=== PATIENT | male | born 1945 | race Caucasian/White ===

== ENCOUNTER 2017-10-08 11:35 | Emergency (ER) | payer MEDICARE, BC ==
[2017-10-08] MEDS ORDERED: Morphine 4 MG/ML Carpuject ONE ×2 (11:57→13:10)
[2017-10-08] MEDS ORDERED: Ondansetron HCl/PF 4 MG/2 ML Vial ONE (11:57)
[2017-10-08 12:14] LABS: #Basophils 0.1 thou/uL (0.0-0.2); #Eosinphils 0.5 thou/uL (0.0-0.7); #Lymphocytes 2.5 thou/uL (1.20-3.40); #Monocytes 0.5 thou/uL (0.11-0.59); #Neutrophils 3.4 thou/uL (1.40-6.50); %Basophils 1.2 % (0.0-1.0); %Eosinophils 7.3 % (0.0-10.0); %Lymphocytes 36.4 % (21.0-51.0); %Monocytes 6.7 % (0.0-10.0); %Neutrophils 48.4 % (42.0-75.0); Hemoglobin 15.6 g/dL (14.0-18.0); Mean Corpuscular HGB CONC 35.3 g/dL (32.0-36.0); Mean Corpuscular Hemoglobin 34.3 pg (27.0-31.0); Mean Corpuscular Volume 97.2 fl (80.0-94.0); Mean Platelet Volume 7.7 fL (7.4-10.4); Platelet Count 196 thou/uL (130-400); RBC Distribution Width 11.2 % (11.5-14.5); Red Blood Cell (RBC) Count 4.56 mill/uL (4.70-6.10)
[2017-10-08 12:37] LABS: ALT (SGPT) 25 U/L (8-55); AST (SGOT) 23 U/L (5-34); Albumin 4.5 g/dL (3.4-4.8); Alkaline Phosphatase 70 U/L (40-150); Anion Gap 15 mmol/L (10-20); BUN (Urea Nitrogen) 18 mg/dL (8.4-25.7); Bilirubin, Total 0.7 mg/dL (0.2-1.2); Calc. Creatinine Clearance 0 mL/min (70-130); Calcium 9.9 mg/dL (7.8-10.44); Carbon Dioxide 21 mmol/L (23-31); Chloride 104 mmol/L (98-107); Estimated GFR-MDRD 72; Globulin 2.9 g/dL (2.4-3.5); Glucose 110 mg/dL (83-110); Lipase 168 U/L (8-78); Potassium 4.4 mmol/L (3.5-5.1); Protein, Total 7.4 g/dL (5.8-8.1); Sodium 136 mmol/L (136-145)
--- NOTE | 2017-10-08 13:03 | RAD ---
ABDOMEN 1 VIEW: HISTORY: Pain. COMPARISON: Abdomen radiograph from 2015. FINDINGS: Multiple calculi projecting over the expected location of the inferior pole right kidney. Also large calculus projecting over what may be the right ureter. No calculus is seen projecting over the left renal collecting system. There are phleboliths in the pelvis. IMPRESSION: Right renal calculi suggestion possible ureteral calculi. Renal stone CT may be beneficial in this p atient. The more caudad calcification could be within a cross-fused ectopic renal collecting system. POS: [facility]
[2017-10-08 13:36] LABS: Bilirubin Negative (Negative); Blood, Urine Negative (Negative); Clarity CLEAR (Clear); Glucose, Urine (Dipstick) >=1000 mg/dL (Negative); Leukocyte Negative (Negative); Nitrite Positive (Negative); Protein, Urine (Dipstick) Negative (Neg-Trace); Specific Gravity, Urine 1.029 (1.002-1.036); Urobilinogen 0.2 mg/dL (0.2-1.0)
[2017-10-08 13:38] LABS: Bacteria/HPF 2+ HPF (None Seen); Hyaline Casts/LPF 0-3 HYALINE CAST LPF (0-3 Hyaline); Squamous Epithelial None Seen HPF (0-3)
[2017-10-08 13:49] LABS: RBC/HPF 0-3 HPF (0-3)
[2017-10-08] MEDS ORDERED: cefTRIAXone\\ROCEPHIN 2 GM in Sodium Chloride 0.9% 100 ML IVPB SCH (15:30)
--- NOTE | 2017-10-08 16:06 | CT ---
EXAM: ABDOMEN CT WITHOUT CONTRAST PELVIC CT WITHOUT CONTRAST: COMPARISON: 02/18/15. HISTORY: Abdominal pain. Right flank pain. History of renal calculi. Previous lithotripsy. TECHNIQUE: Abdomen and pelvic CT is performed without IV or oral contrast. Coronal reformatted images are submi tted for interpretation. FINDINGS: ABDOMEN CT: Chronic changes in the lung bases. There are coronary artery calcifications. Heart size is normal. No significant pericardial fluid. The descending thoracic aorta and abdominal aorta demonstrate mil d atherosclerotic disease. No aneurysm or periaortic fat stranding. Symmetric attenuation of the ps oas muscles. Gallbladder is surgically absent. Limited evaluation of the solid organs due to the absence of IV contrast. Grossly, no solid organ ab normality. No mesenteric mass, lymphadenopathy, free air, or free fluid. Limited evaluation of the alimentary canal by the absence of oral contrast. Multiple normal-caliber small bowel loops. Ileocecal junction is normal. Normal-caliber appendix. Scattered fecal material in a nondistended, nondilated colon. CT evidence of diverticulosis, without evidence of diverticuli tis. 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 There are bilateral nonobstructing in trarenal calculi. The largest calcification in the right renal pelvis measures 0.7 x 1.3 cm. There is a conglomeration of 2 separate calcifications in the left renal pelvis measuring 1.1 x 0.4 cm. Bi laterally, visualized ureters are unremarkable. No hydroureteral, periureteral fat stranding, or ure terolithiasis. PELVIC CT: Decompressed urinary bladder without evidence of bladder calculi. Evaluation is limited. Mucosal pr ominence may be due to inadequate distention. No pelvic mass, lymphadenopathy, free air, or free flu id. IMPRESSION: 1. 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 2. Redemonstration of bilateral nonobstructing urinary calculi. No evidence of obstructive uropathy . POS: [facility]
== END 2017-10-08 17:44 | disposition home or self-care (01) ==
LOC: ERS 11:35
DX: N23 Unspecified renal colic (principal); N39.0 Urinary tract infection, site not specified; I10 Essential (primary) hypertension; E11.9 Type 2 diabetes mellitus without complications; Z79.899 Other long term (current) drug therapy; Z79.84 Long term (current) use of oral hypoglycemic drugs
CPT/HCPCS: 74018; 74176; 80053; 81003; 81015; 83690; 85025; 96361; 96365; 96375; 96376; J0696; J2270; J2405; J7050

== ENCOUNTER 2018-01-14 16:24 | Emergency (ER) | payer MEDICARE, BC ==
[2018-01-14 17:01] LABS: #Eosinphils 0.4 thou/uL (0.0-0.7); #Lymphocytes 2.2 thou/uL (1.20-3.40); #Monocytes 0.5 thou/uL (0.11-0.59); #Neutrophils 4.9 thou/uL (1.40-6.50); %Basophils 0.6 % (0.0-1.0); %Eosinophils 4.6 % (0.0-10.0); %Lymphocytes 27.1 % (21.0-51.0); %Monocytes 5.8 % (0.0-10.0); %Neutrophils 61.9 % (42.0-75.0); Hemoglobin 14.7 g/dL (14.0-18.0); Mean Corpuscular HGB CONC 35.2 g/dL (32.0-36.0); Mean Corpuscular Hemoglobin 33.5 pg (27.0-31.0); Mean Corpuscular Volume 95.3 fl (80.0-94.0); Mean Platelet Volume 7.7 fL (7.4-10.4); Platelet Count 169 thou/uL (130-400); RBC Distribution Width 11.1 % (11.5-14.5); Red Blood Cell (RBC) Count 4.37 mill/uL (4.70-6.10); White Blood Cell (WBC) Count 7.9 thou/uL (4.8-10.8)
[2018-01-14 17:15] LABS: ALT (SGPT) 28 U/L (8-55); AST (SGOT) 23 U/L (5-34); Albumin 4.4 g/dL (3.4-4.8); Alkaline Phosphatase 70 U/L (40-150); Anion Gap 14 mmol/L (10-20); BUN (Urea Nitrogen) 29 mg/dL (8.4-25.7); Bilirubin, Total 0.7 mg/dL (0.2-1.2); Calc. Creatinine Clearance 0 mL/min (70-130); Calcium 9.3 mg/dL (7.8-10.44); Carbon Dioxide 24 mmol/L (23-31); Chloride 102 mmol/L (98-107); Estimated GFR-MDRD 42; Globulin 2.6 g/dL (2.4-3.5); Glucose 142 mg/dL (83-110); Potassium 4.6 mmol/L (3.5-5.1); Sodium 135 mmol/L (136-145)
[2018-01-14 17:22] LABS: CKMB 2.7 ng/mL (0-6.6); Troponin I Less than 0.010 ng/mL (< 0.028)
--- NOTE | 2018-01-14 19:22 | CT ---
HEAD CT WITHOUT CONTRAST 01/14/18 COMPARISON: 05/10/15 HISTORY: Headache, lightheadedness, dizziness, nausea and near syncope. TECHNIQUE: Serial axial CT imaging at 5 mm intervals from vertex through skull base without contrast. FINDINGS: There is partial opacification of the ethmoid air cells bilaterally. There is no displaced calvarial fracture. No intracranial hemorrhage, midline shift, mass effect, or ventricular enlargement. IMPRESSION: No intracranial hemorrhage. POS: [facility]
[2018-01-14 19:35] LABS: Bilirubin Small (Negative); Blood, Urine Large (Negative); Clarity CLEAR (Clear); Glucose, Urine (Dipstick) >=1000 mg/dL (Negative); Leukocyte Negative (Negative); Nitrite Negative (Negative); Protein, Urine (Dipstick) Trace mg/dL (Neg-Trace); Specific Gravity, Urine 1.035 (1.002-1.036)
[2018-01-14 19:37] LABS: Bacteria/HPF None Seen HPF (None Seen); Squamous Epithelial 0-3 HPF (0-3); WBC/HPF 0-3 HPF (0-3)
[2018-01-14 19:50] LABS: Pathc Cast-AUWi Flag 3.34 (0-2.49)
[2018-01-14 20:00] LABS: Other Casts/LPF None Seen LPF (0-3 Hyaline)
--- NOTE | 2018-01-14 20:48 | RAD ---
FRONTAL RADIOGRAPH CHEST 01/14/18 COMPARISON: 12/01/15 HISTORY: Lightheadedness, dizzy. FINDINGS: Heart and mediastinal contours are stable. No pneumothorax, pleural fluid, focal consolidation, or al veolar edema. IMPRESSION: No acute findings. POS: [facility]
== END 2018-01-14 21:20 | disposition home or self-care (01) ==
LOC: ERS 16:24
DX: E86.0 Dehydration (principal); I10 Essential (primary) hypertension; E78.5 Hyperlipidemia, unspecified; E11.9 Type 2 diabetes mellitus without complications; I49.9 Cardiac arrhythmia, unspecified; Z79.899 Other long term (current) drug therapy; Z79.84 Long term (current) use of oral hypoglycemic drugs
CPT/HCPCS: 70450; 71045; 80053; 81003; 81015; 82553; 83880; 84484; 85025; 93005; 96360

== ENCOUNTER 2018-04-17 11:27 | Outpatient (CLI) | payer MEDICARE, BC ==
--- NOTE | 2018-04-17 15:21 | RAD ---
KUB: Date: 04/17/18 HISTORY: Nephrolithiasis. FINDINGS/IMPRESSION: Comparison made with exam of 10/08/17. Correlation is made with CT scan of 10/08/17. Calculi in the right kidney and a fused ectopic left kidney are again seen. Calcific densities in the pelvis are likely phleboliths. There are degenerative changes in the spine and hip joints. POS: [facility]
== END 2018-04-17 11:28 | disposition home or self-care (01) ==
LOC: RAD 11:27
PROVIDERS: ATTEND Urology
DX: N20.0 Calculus of kidney (principal); Q63.2 Ectopic kidney; R93.429 Abnormal radiologic findings on diagnostic imaging of unspecified kidney; M16.0 Bilateral primary osteoarthritis of hip; M47.899 Other spondylosis, site unspecified
CPT/HCPCS: 74018

== ENCOUNTER 2018-04-22 09:50 | Outpatient (CLI) | payer MEDICARE, BC ==
[2018-04-22 11:16] LABS: Hemoglobin 14.4 g/dL (14.0-18.0); Mean Corpuscular HGB CONC 34.8 g/dL (32.0-36.0); Mean Corpuscular Hemoglobin 33.6 pg (27.0-31.0); Mean Corpuscular Volume 96.7 fL (78.0-98.0); Platelet Count 162 thou/uL (130-400)
[2018-04-22 11:19] LABS: PTT 34.4 SEC (22.9-36.1); Prothrombin Time 13.5 SEC (12.0-14.7)
[2018-04-22 11:34] LABS: Anion Gap 17 mmol/L (10-20); BUN (Urea Nitrogen) 20 mg/dL (8.4-25.7); Calc. Creatinine Clearance 0 mL/min (70-130); Calcium 9.8 mg/dL (7.8-10.44); Carbon Dioxide 23 mmol/L (23-31); Chloride 103 mmol/L (98-107); Estimated GFR-MDRD 64; Glucose 191 mg/dL (83-110); Potassium 4.5 mmol/L (3.5-5.1); Sodium 138 mmol/L (136-145)
[2018-04-22 11:54] LABS: Bilirubin Negative (Negative); Blood, Urine Negative (Negative); Clarity CLEAR (Clear); Glucose, Urine (Dipstick) >=1000 mg/dL (Negative); Leukocyte Negative (Negative); Nitrite Negative (Negative); Protein, Urine (Dipstick) Negative (Neg-Trace); Specific Gravity, Urine 1.037 (1.002-1.036); Urobilinogen 0.2 mg/dL (0.2-1.0)
[2018-04-22 12:06] LABS: Bacteria/HPF None Seen HPF (None Seen); Hyaline Casts/LPF 0-3 HYALINE CAST LPF (0-3 Hyaline); RBC/HPF 0-3 HPF (0-3); Squamous Epithelial None Seen HPF (0-3); WBC/HPF None Seen HPF (0-3)
--- NOTE | 2018-07-13 17:02 | EKG ---
Test Reason : Blood Pressure : / mmHG Vent. Rate : 065 BPM Atrial Rate : 065 BPM P-R Int : 168 ms QRS Dur : 124 ms QT Int : 450 ms P-R-T Axes : 030 -51 -88 degrees QTc Int : 468 ms Normal sinus rhythm Right bundle branch block Left anterior fascicular block Bifascicular block Left ventricular hypertrophy Abnormal ECG When compared with ECG of 14-JAN-2018 16:28, T wave inversion more evident in Lateral leads Confirmed by MAYDA INTERIANO M.D. ([id number] on 07/13/2018 5:01:38 PM Referred By: EARLINE Confirmed By:MAYDA INTERIANO M.D.
== END 2018-04-22 09:51 | disposition home or self-care (01) ==
LOC: LABBT 09:50
PROVIDERS: ATTEND Urology
DX: Z01.818 Encounter for other preprocedural examination (principal); N20.0 Calculus of kidney
CPT/HCPCS: 80048; 81001; 85027; 85610; 85730; 87086; 93005; 93010

== ENCOUNTER 2018-04-30 10:29 | Day surgery (SDC) | payer MEDICARE, BC ==
[2018-04-22 10:12] VITALS: BMI 26.7
[2018-04-30] MEDS ORDERED: Levofloxacin 500 mg/D5W 100 ml Premix Bag ONE (11:58)
[2018-04-30] MEDS ORDERED: Iothalamate Meglumine 60% 50 ML VIAL FS ONE (12:35)
[2018-04-30] MEDS ORDERED: B & O ONE (12:35)
[2018-04-30] MEDS ORDERED: Fentanyl 100 MCG/2 ML VIAL ONE (12:38)
[2018-04-30] MEDS ORDERED: PHENYLEPHRINE-NS 100 MCG/ML 10 ML SYRINGE ONE (15:29)
[2018-04-30] MEDS ORDERED: Ondansetron HCl/PF 4 MG/2 ML Vial ONE (15:29)
[2018-04-30] MEDS ORDERED: PROPOFOL 200 MG/20 ML VIAL ONE (15:29)
--- NOTE | 2018-04-30 15:32 | RAD ---
RIGHT RETROGRADE PYELOGRAM 04/30/18 HISTORY: Renal calculi. FINDINGS/IMPRESSION: A single fluoroscopic image of the abdomen demonstrates right sided ureteral stent. There is a calcul us in the projection of the inferior aspect of the right kidney. POS: [facility]
[2018-04-30] MEDS ORDERED: HYDROcodone/Acetaminophen 5/325 mg Tablet ONE (17:56)
--- NOTE | 2018-05-01 00:56 | OP ---
DATE OF PROCEDURE: 04/30/2018 SERVICE: Urology. SURGEON: Cade Kline M.D. PREOPERATIVE DIAGNOSIS: Right renal stones and left renal stone. POSTOPERATIVE DIAGNOSIS: Bilateral renal stones. PROCEDURES PERFORMED: Right ureteroscopy, laser lithotripsy, basket extraction of stones and placement of a 6 x 26 double-J stent on the right. INDICATIONS FOR PROCEDURE: Mr. Ramos is a 72-year-old white male, who presented to me with a history of nephrolithiasis. He has been treated for his ureteral stones, but still has remaining renal stones which are relatively large in the 1 cm range. 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 Given that he has two 1-cm stones in the right, we elected for ureteroscopy and removal of the stones with treatment of the left- sided stone at a later date. Risks and benefits have been discussed and he has agreed to proceed forward. DESCRIPTION OF PROCEDURE: After identification of armband and verification of consent, the patient was brought back to the operating room where he underwent general anesthesia with endotracheal intubation. He was then placed in dorsal lithotomy position and prepped and draped in usual sterile fashion. After appropriate timeout, a lubricated 22-[place] rigid cystoscope was introduced per urethra into the bladder. Attention was turned to the right ureteral orifice which was cannulated with a 0.035 sensor wire up to the level of the renal pelvis. The cystoscope was then removed and a dual-lumen catheter was advanced over the sensor wire up to the level of the renal pelvis. An Amplatz Super Stiff wire was then placed through the second lumen up to the level of the renal pelvis and the dual lumen removed. A 11/13 x 46 cm ureteral access sheath was advanced over the Super Stiff wire up to the level of the proximal ureter. The inner cannula and the Super Stiff wire were then removed leaving the outer sheath and sensor wire in place as a safety wire. A flexible digital ureteroscope was then passed up the ureteral access sheath into the renal pelvis. Full pyeloscopy was performed and demonstrated the 2 lower pole renal stone, which had previously been seen on CT. No other stones were noted. Using a 200 micron laser fiber on the dusting setting, the stone was fragmented into small pieces. The stones were hollow inside. The stone fragments were then retrieved using a 1.9 [place] Islander 0 tip nitinol basket until there were no fragments remaining that were over 1 mm in size. Upon completion, the patient was essentially stone free with no visible stones on plain x-ray. Again, there was some dust and very small fragments. Satisfied pullback ureteroscopy was employed and no additional stones were noted in the ureter. The ureteroscope and sheath were then removed leaving the sensor wire in place. The rigid cystoscope was then advanced back over the sensor wire back into the bladder. A 6 x 26 double-J stent was advanced over the sensor wire up to the level of the renal pelvis. The wire was then removed leaving a partial curl in the kidney and a good curl in the bladder. The bladder was then drained and the cystoscope removed. The patient was then awakened and taken to PACU for recovery in stable condition. COMPLICATIONS: None. ESTIMATED BLOOD LOSS: Minimal. RETAINED TUBES AND DRAINS: A 6 x 26 double-J stent on the right. SPECIMENS: Stone for stone analysis. DISPOSITION: The patient will come back to see me in approximately a week for cystoscopy and stent removal. CARLOS
== END 2018-04-30 20:00 | disposition home or self-care (01) ==
LOC: SDC 10:29
PROVIDERS: ATTEND Urology
PROC: 0T768DZ Dilation of Right Ureter with Intraluminal Device, Via Natural or Artificial Opening Endoscopic (ICD-10-PCS; principal; 2018-04-30)
PROC: 0TC08ZZ Extirpation of Matter from Right Kidney, Via Natural or Artificial Opening Endoscopic (ICD-10-PCS; 2018-04-30)
DX: N20.0 Calculus of kidney (principal); I10 Essential (primary) hypertension; E10.9 Type 1 diabetes mellitus without complications; Z87.442 Personal history of urinary calculi; Z88.8 Allergy status to other drugs, medicaments and biological substances
CPT/HCPCS: 51798; 52356; 74420; 82365; 88300; C1758; C1769; J1956; J2405; J2704; J3010; Q9961

== ENCOUNTER 2019-02-16 03:04 | Emergency (ER) | payer MEDICARE, BC ==
[2019-02-16] MEDS ORDERED: Nitroglycerin 0.4 MG TAB 1 EACH ONE (03:54)
[2019-02-16 04:02] LABS: #Basophils 0.1 thou/uL (0.0-0.2); #Eosinphils 0.7 thou/uL (0.0-0.7); #Lymphocytes 2.4 thou/uL (1.20-3.40); #Monocytes 0.6 thou/uL (0.11-0.59); #Neutrophils 4.6 thou/uL (1.40-6.50); %Basophils 1.2 % (0.0-1.0); %Eosinophils 7.9 % (0.0-10.0); %Lymphocytes 28.6 % (21.0-51.0); %Monocytes 6.7 % (0.0-10.0); %Neutrophils 55.7 % (42.0-75.0); Mean Corpuscular HGB CONC 35.3 g/dL (32.0-36.0); Mean Corpuscular Hemoglobin 34.7 pg (27.0-31.0); Mean Corpuscular Volume 98.2 fL (78.0-98.0); Platelet Count 160 thou/uL (130-400); RBC Distribution Width 11.1 % (11.5-14.5); Red Blood Cell (RBC) Count 4.04 mill/uL (4.70-6.10); White Blood Cell (WBC) Count 8.3 thou/uL (4.8-10.8)
[2019-02-16 04:25] LABS: ALT (SGPT) 22 U/L (8-55); AST (SGOT) 18 U/L (5-34); Albumin 4.3 g/dL (3.4-4.8); Alkaline Phosphatase 67 U/L (40-150); Anion Gap 15 mmol/L (10-20); BUN (Urea Nitrogen) 18 mg/dL (8.4-25.7); Bilirubin, Total 0.5 mg/dL (0.2-1.2); Calc. Creatinine Clearance 0 mL/min (70-130); Calcium 9.5 mg/dL (7.8-10.44); Carbon Dioxide 26 mmol/L (23-31); Chloride 102 mmol/L (98-107); Estimated GFR-MDRD 60; Globulin 2.3 g/dL (2.4-3.5); Glucose 150 mg/dL (83-110); Protein, Total 6.6 g/dL (5.8-8.1); Sodium 139 mmol/L (136-145)
--- NOTE | 2019-02-16 07:59 | RAD ---
CHEST ONE VIEW: Indication: Chest pressure. Comparison: 01-14-18 FINDINGS: Lungs are clear. Heart size is mildly enlarged but stable to comparison dated 01-14-18. No pleural effu kodak or pneumothorax identified. IMPRESSION: No acute abnormality. POS: [facility]
== END 2019-02-16 05:00 | disposition home or self-care (01) ==
LOC: ERS 03:04
DX: R07.89 Other chest pain (principal); T39.315A Adverse effect of propionic acid derivatives, initial encounter; I49.9 Cardiac arrhythmia, unspecified; I10 Essential (primary) hypertension; E78.5 Hyperlipidemia, unspecified; E11.9 Type 2 diabetes mellitus without complications; Z79.84 Long term (current) use of oral hypoglycemic drugs; Z79.899 Other long term (current) drug therapy; Z87.442 Personal history of urinary calculi
CPT/HCPCS: 36415; 71045; 80053; 83735; 84484; 85025; 93005; 96360

== ENCOUNTER 2019-04-16 13:19 | Outpatient (CLI) | payer MEDICARE, BC ==
--- NOTE | 2019-04-16 16:08 | ULT ---
RENAL ULTRASOUND: 04/16/19 HISTORY: Pain. Cross views ectopic left kidney. Nephrolithiasis. TECHNIQUE: Sagittal and transverse imaging of the kidneys is performed. FINDINGS: Bilaterally, no hydronephrosis. Right kidney measures 12.1 x 5.7 x 4.4 cm. Left kidney measures 6.7 x 6.0 x 13.5 cm. Previously noted calculi are difficult to appreciate sonogr aphically. Urinary bladder is unremarkable. Prevoid volume is 73 mL. IMPRESSION: 1. No hydronephrosis. 2. Limited sonographic evaluation for previously noted renal calculi (correlation made with CT f rom 10/08/17). POS: [facility]
== END 2019-04-16 13:20 | disposition home or self-care (01) ==
LOC: BICULT 13:19
PROVIDERS: ATTEND Urology
DX: N20.0 Calculus of kidney (principal)
CPT/HCPCS: 76770; 81001; 87086

== ENCOUNTER 2019-05-06 09:41 | Outpatient (CLI) | payer MEDICARE, BC | END 2019-05-06 09:42 | disposition home or self-care (01) | LOC: CTENTCT 09:41 | PROVIDERS: ATTEND Otolaryngology Plastic Surgery within the Head & Neck | DX: J32.9 Chronic sinusitis, unspecified (principal) | CPT/HCPCS: 70486 ==

== ENCOUNTER 2019-05-19 06:33 | Day surgery (SDC) | payer MEDICARE, BC ==
[2019-05-18 10:02] VITALS: BMI 25.9
[2019-05-19] MEDS ORDERED: Oxymetazoline HCl 0.05% ( 15 ML ) ONE ×3 (07:30→14:18)
[2019-05-19 07:56] LABS: Hemoglobin 15.1 g/dL (14.0-18.0)
[2019-05-19 08:15] LABS: Anion Gap 14 mmol/L (10-20); BUN (Urea Nitrogen) 18 mg/dL (8.4-25.7); Calc. Creatinine Clearance 82 mL/min (70-130); Calcium 9.5 mg/dL (7.8-10.44); Carbon Dioxide 29 mmol/L (23-31); Chloride 100 mmol/L (98-107); Estimated GFR-MDRD 72; Glucose 132 mg/dL (83-110); Potassium 4.5 mmol/L (3.5-5.1); Sodium 138 mmol/L (136-145)
[2019-05-19] MEDS ORDERED: Bacitracin Zinc Ointment 30 gm TUBE ONE (08:44)
[2019-05-19] MEDS ORDERED: Lidocaine 1% w/Epinephrine 1:100K 20 ML VIAL ONE (08:44)
[2019-05-19] MEDS ORDERED: Fentanyl 100 MCG/2 ML VIAL ONE ×2 (08:48→10:11)
[2019-05-19] MEDS ORDERED: Lidocaine 4% Topical Sol 50 ML BOT ONE (08:49)
[2019-05-19] MEDS ORDERED: methylPREDNISolone Acetate 40 mg/ml Vial ONE (08:49)
[2019-05-19] MEDS ORDERED: Sodium Chloride For Inhalation 0.9% 3 ML NEB ONE (10:13)
[2019-05-19] MEDS ORDERED: Midazolam HCl 2 mg/2 ml Vial ONE (10:40)
--- NOTE | 2019-05-19 11:15 | RAD ---
EXAM: Single view of the chest HISTORY: Chest pain COMPARISON: 02/16/2019 FINDINGS: Single view of the chest shows a normal sized cardiomediastinal silhouette. There is no trevin dence of consolidation, mass, or pleural effusion. The bones are unremarkable. IMPRESSION: No evidence of acute cardiopulmonary disease
[2019-05-19] MEDS ORDERED: Glycopyrrolate 0.2 MG/ML 5 ML SYRINGE ONE (11:36)
[2019-05-19] MEDS ORDERED: Ondansetron PF 4 MG/2 ML Vial ONE (11:36)
[2019-05-19] MEDS ORDERED: Lidocaine 1% PF 5 ML VIAL ONE (11:36)
[2019-05-19] MEDS ORDERED: Dexamethasone 20 MG/5 ML VIAL ONE (11:36)
[2019-05-19] MEDS ORDERED: Rocuronium Bromide 10 MG/ML (10ML VIAL) ONE (11:36)
[2019-05-19] MEDS ORDERED: Esmolol 100 MG/10 ML VIAL ONE (11:36)
[2019-05-19] MEDS ORDERED: PROPOFOL 200 MG/20 ML VIAL ONE (11:36)
[2019-05-19] MEDS ORDERED: HYDROcodone/Acetaminophen 5/325 mg Tablet ONE ×2 (13:27→14:02)
--- NOTE | 2019-05-20 15:27 | OP ---
DATE OF PROCEDURE: 05/19/2019 PREOPERATIVE DIAGNOSES: 1. Chronic rhinosinusitis. 2. Nasal polyposis. 3. Nasal septal deviation. 4. Bilateral inferior turbinate hypertrophy. POSTOPERATIVE DIAGNOSES: 1. Chronic rhinosinusitis. 2. Nasal polyposis. 3. Nasal septal deviation. 4. Bilateral inferior turbinate hypertrophy. PROCEDURES PERFORMED: 1. Bilateral endoscopic sinus surgery, total ethmoidectomies. 2. Bilateral endoscopic sinus surgery, maxillary antrostomies. 3. Bilateral endoscopic maxillary antrostomies with removal of tissue. 4. Bilateral endoscopic sinus surgery, frontal sinusotomy with removal of tissue. 5. Bilateral endoscopic sinus surgery, sphenoidotomies. 6. Nasal septoplasty. 7. Bilateral inferior turbinate submucosal resection. ESTIMATED BLOOD LOSS: 50 mL. COMPLICATIONS: None. ANESTHESIA: GETA. DESCRIPTION OF PROCEDURE: The patient was taken to the operating room and GETA was obtained by the anesthesia staff. Afrin pledgets were then placed into the nasal cavity bilaterally. The patient was placed into the beach chair position and was prepped and draped for standard nasal surgical procedures. Following this, the Afrin pledgets were removed and 1% lidocaine with 1:100,000 epinephrine was injected via a 27 gauge needle into the nasal septum, the inferior turbinate and the middle turbinate bilaterally. Following this, a Sachse incision was made on the left nasal septum and mucoperichondrial flaps were elevated. A strong 2 cm caudal and dorsal cartilage strut was left intact as the deviated portions of the nasal cartilage and bone was removed. A 4-0 gut stitch was used to reapproximate the nasal mucoperichondrial flaps as well as close the Bijan incision. Following this, the submucosal microdebrider was used to puncture and submucosally resect the anterior-inferior portions of the hypertrophic inferior turbinates. The inferior turbinates were laterally outfractured with a [place] elevator. Following this, 1% lidocaine with 1:100,000 epinephrine were injected into the middle turbinates and lateral nasal wall bilaterally. Following this, the 0-degree endoscope was used to visualize the middle turbinate and the middle turbinate was medially fractured using a [place] elevator. Following this, the uncinate process was identified and was examined. The uncinate process was noted to be inflamed and laterally displaced bilaterally. Following this, a ball-ended probe was used to anteriorly fracture the uncinate process bilaterally. Following this, the 0-degree microdebrider and the up-biting Blakesley forceps were used to remove the uncinate process bilaterally. Following this, the natural maxillary sinus ostia was identified with the 0-degree endoscope and the ball-ended probe. The natural maxillary ostia was then widened using a 40-degree microdebrider and the straight Blakesley forceps bilaterally. Following this, the ethmoidal bulla was identified bilaterally. A 0-degree microdebrider was used to puncture the ethmoidal bulla on its medial and inferior aspect bilaterally. Following this, the 0-degree microdebrider and the up-biting Blakesley forceps were used to remove the ethmoidal bulla. Following this, the grand lamella was identified posterior to this area and was punctured using the 0-degree microdebrider bilaterally. Following this, the ethmoidal cells were opened from the posterior to the anterior using the 0-degree microdebrider, the 40-degree microdebrider and the up-biting Blakesley forceps bilaterally. Following this, the 45-degree endoscope and the 40-degree microdebrider blade were used to further remove the anterior ethmoidal cells to the level of the frontal sinus recess bilaterally. Please note that the nasal polyps were removed from the maxillary sinus opening and the anterior ethmoidal area bilaterally. Following this, the 45-degree endoscope was used to visualize the frontal sinus ostia, which was then widened using the curved microdebrider bilaterally. Nasal polyps and debris were removed from the frontal sinus bilaterally. Following this, a 0-degree endoscope was advanced through the previous ethmoidectomies with the sphenoid sinus where the anterior face of the sphenoid sinus was identified. Following this, a Arguelles tip suction was used to puncture the sphenoid sinus bilaterally. Following this, the 0-degree microdebrider was used to widen the sphenoidotomies medially and inferiorly. Following this, the nasal cavity was irrigated. MeroPacks were placed within the middle meatus. Following this, the 45-degree endoscope was used to visualize the frontal sinus ostia. Again, PROPEL steroid stents were placed in the new frontal sinus ostia bilaterally. The patient tolerated the procedure well. Job ID: [id number]
--- NOTE | 2019-05-20 17:11 | EKG ---
Test Reason : PREOP Blood Pressure : / mmHG Vent. Rate : 064 BPM Atrial Rate : 064 BPM P-R Int : 168 ms QRS Dur : 124 ms QT Int : 464 ms P-R-T Axes : 031 -56 -38 degrees QTc Int : 478 ms Normal sinus rhythm Right bundle branch block Left anterior fascicular block Bifascicular block Marked T wave abnormality, consider lateral ischemia Abnormal ECG Confirmed by TAIWO HENDRICKS ([id number]) on 05/20/2019 5:10:54 PM Referred By: QUIRINO Confirmed By:TAIWO HENDRICKS
== END 2019-05-19 14:40 | disposition home or self-care (01) ==
LOC: SDC 06:33
PROVIDERS: ATTEND Otolaryngology Plastic Surgery within the Head & Neck
PROC: 09SM0ZZ Reposition Nasal Septum, Open Approach (ICD-10-PCS; principal; 2019-05-19)
PROC: 09TL7ZZ Resection of Nasal Turbinate, Via Natural or Artificial Opening (ICD-10-PCS; 2019-05-19)
PROC: 09TV8ZZ Resection of Left Ethmoid Sinus, Via Natural or Artificial Opening Endoscopic (ICD-10-PCS; 2019-05-19)
PROC: 09TU8ZZ Resection of Right Ethmoid Sinus, Via Natural or Artificial Opening Endoscopic (ICD-10-PCS; 2019-05-19)
PROC: 09BT8ZZ Excision of Left Frontal Sinus, Via Natural or Artificial Opening Endoscopic (ICD-10-PCS; 2019-05-19)
PROC: 09BS8ZZ Excision of Right Frontal Sinus, Via Natural or Artificial Opening Endoscopic (ICD-10-PCS; 2019-05-19)
PROC: 099X8ZZ Drainage of Left Sphenoid Sinus, Via Natural or Artificial Opening Endoscopic (ICD-10-PCS; 2019-05-19)
PROC: 099W8ZZ Drainage of Right Sphenoid Sinus, Via Natural or Artificial Opening Endoscopic (ICD-10-PCS; 2019-05-19)
PROC: 09BR8ZZ Excision of Left Maxillary Sinus, Via Natural or Artificial Opening Endoscopic (ICD-10-PCS; 2019-05-19)
PROC: 09BQ8ZZ Excision of Right Maxillary Sinus, Via Natural or Artificial Opening Endoscopic (ICD-10-PCS; 2019-05-19)
DX: J32.4 Chronic pansinusitis (principal); J34.2 Deviated nasal septum; J34.3 Hypertrophy of nasal turbinates; J33.9 Nasal polyp, unspecified; G89.29 Other chronic pain; M54.5 Low back pain; E13.9 Other specified diabetes mellitus without complications; I10 Essential (primary) hypertension; J30.9 Allergic rhinitis, unspecified; Z79.82 Long term (current) use of aspirin; Z79.84 Long term (current) use of oral hypoglycemic drugs; Z79.899 Other long term (current) drug therapy; Z88.8 Allergy status to other drugs, medicaments and biological substances
CPT/HCPCS: 36415; 71045; 80048; 85014; 85018; 93005; 93010; 94660; J1030; J2001; J2250; J3010; J7620

== ENCOUNTER 2019-05-19 19:02 | Emergency (ER) | payer MEDICARE, BC | END 2019-05-19 21:13 | disposition left against medical advice (07) | LOC: ERS 19:02 | DX: Z53.21 Procedure and treatment not carried out due to patient leaving prior to being seen by health care provider (principal) ==

== ENCOUNTER 2020-07-10 12:44 | Outpatient (CLI) | payer MEDICARE, BC ==
[~2020-07-10 12:44] MED LIST: Magnevist 469MG/ML 20 ML VIAL ONE
--- NOTE | 2020-07-10 14:37 | MRI ---
Exam: Lumbar spine MRI with and without contrast COMPARISON: 05/15/2012. HISTORY: Lumbar radiculopathy. Previous surgery. Bilateral foot numbness. FINDINGS: Appropriate T1 marrow signal intensity of the lumbar vertebra. Lumbar spine vertebral body heights ar e maintained. There is no fracture. There is no significant STIR hyperintensity to suggest vertebral body edema or ligamentous injury. Conus medullaris terminates at the mid T12 level. Appropriate signal intensity of the visualized paraspinal muscles and solid organs. Spondylolisthesis: 0.8 cm of anterolisthesis of L5 upon S1. There is associated spondylolysis as well as hypertrophic changes of the facets. T12-L1: Adequate disc hydration. Broad-based disc bulge without significant central canal stenosis. M ild bilateral neural foraminal narrowing. L1-L2: Adequate disc hydration. No posterior disc abnormality. No significant central canal stenosis. Patent bilateral neural foramina. L2-L3: Minimal disc desiccation without significant loss of disc space height. Broad-based disc bulge , ligamentum flavum thickening and facet hypertrophy result in mild to moderate central canal stenosis. There is partial obscuration of bilateral traversing L3 nerve roots. The degree of central canal stenosis has progressed since the previous examination. Mild bilateral neural foraminal narrowing. L3-L4: Adequate disc hydration. Disc space height is preserved. Broad-based disc bulge mildly contact s the ventral thecal sac. There is ligamentum flavum thickening and facet hypertrophy. Mild central canal stenosis. Mild to moderate right and moderate left neural foraminal narrowing. L4-L5: Adequate disc hydration. Broad-based disc bulge abuts the ventral thecal sac. There is ligamen buster flavum thickening and facet hypertrophy. Mild central canal stenosis. Moderate bilateral neural foraminal narrowing. L5-S1: There is severe loss of disc space height. No evidence of significant central canal stenosis. Moderate to severe right and moderate left neural foraminal narrowing. There is a posterior laminectomy defect with enhancing scar tissue at the operative site. Postcontrast images do not demonstrate any abnormal enhancement within the thecal sac including the c auda equina and conus medullaris. There is mild enhancing scar tissue at the laminectomy defects at L5-S1. IMPRESSION: 1. Varying degrees of central canal stenosis and neural foramina narrowing as detailed above. 2. Postoperative changes at L5-S1. 3. Grade 1 anterolisthesis of L5 upon S1 with associated spondylolysis. Transcribed Date/Time: 07/10/2020 2:53 PM
== END 2020-07-10 12:45 | disposition home or self-care (01) ==
LOC: TBSIIMAG 12:44
PROVIDERS: ATTEND Neurological Surgery
DX: M54.16 Radiculopathy, lumbar region (principal); M48.061 Spinal stenosis, lumbar region without neurogenic claudication; M48.07 Spinal stenosis, lumbosacral region; M43.17 Spondylolisthesis, lumbosacral region; Z98.890 Other specified postprocedural states
CPT/HCPCS: 72158; 82565; A9579

== ENCOUNTER 2020-08-16 06:26 | Outpatient (CLI) | payer MEDICARE, BC ==
[2020-08-16 10:19] LABS: Anion Gap 17 mmol/L (10-20); BUN (Urea Nitrogen) 25 mg/dL (8.4-25.7); Calc. Creatinine Clearance 0 mL/min (70-130); Calcium 9.5 mg/dL (7.8-10.44); Carbon Dioxide 24 mmol/L (23-31); Chloride 99 mmol/L (98-107); Estimated GFR-MDRD 49; Glucose 218 mg/dL (83-110); Potassium 4.2 mmol/L (3.5-5.1); Sodium 136 mmol/L (136-145)
[2020-08-16 10:20] LABS: Hemoglobin 15.2 g/dL (14.0-18.0); Mean Corpuscular HGB CONC 34.5 G/DL (32.0-36.0); Mean Corpuscular Hemoglobin 33.3 PG (27.0-33.0); Mean Corpuscular Volume 96.7 fl (80.0-100.0); Mean Platelet Volume 10.7 fl (7.4-10.4); Platelet Count 194 10x3/uL (130-400); RBC Distribution Width 11.9 % (11.5-14.5); Red Blood Cell (RBC) Count 4.56 10x6/uL (4.40-5.80); White Blood Cell (WBC) Count 9.4 10x3/uL (4.5-11.0)
[2020-08-16 18:16] LABS: SARS-CoV-2 MS2 Positive; SARS-CoV-2 N Gene Negative; SARS-CoV-2 S Gene Negative; SARS-CoV-2 by NAA Not Detected (NotDetected); SARS-CoV-2 orf1ab Negative
== END 2020-08-16 06:27 | disposition home or self-care (01) ==
LOC: LABBT 06:26
PROVIDERS: ATTEND Neurological Surgery
DX: Z01.812 Encounter for preprocedural laboratory examination (principal); Z20.828 Contact with and (suspected) exposure to other viral communicable diseases; M54.16 Radiculopathy, lumbar region; M48.061 Spinal stenosis, lumbar region without neurogenic claudication
CPT/HCPCS: 80048; 85027; U0003; 87635

== ENCOUNTER 2020-08-21 06:14 | Day surgery (SDC) | payer MEDICARE, BC ==
[2020-08-18 10:21] VITALS: BMI 25.9
--- NOTE | 2020-08-21 07:02 | HP ---
HISTORY OF PRESENT ILLNESS: Mr. Ramos is a 74-year-old man known to us for prior L5-S1 fusion in 2011 who returns now for recurrent pain that fit more of an L5 pattern. He reports significant numbness to the bilateral feet. This interrupts his sleep some, 4-5 times a night. He states he started to walk with a stooped posture, reporting that this started back in September. He does have type 2 diabetes, and his primary care physician feels he has developed neuropathy. MRI from [place] reveals significant L4-5 stenosis that likely explains what he is experiencing. Exam is deferred for telehealth visit. PAST MEDICAL HISTORY: Hypercholesterolemia, kidney problems, diabetes, coronary arterial disease, hypertension. PAST SURGICAL HISTORY: Unspecified heart surgeries x2, bilateral knees. CURRENT MEDICATIONS: 1. Lisinopril. 2. Invokana. 3. Gabapentin. 4. Metformin. 5. Metoprolol. 6. Amiodarone. 7. Atorvastatin. ALLERGIES: NO KNOWN DRUG ALLERGIES. ASSESSMENT: Lumbar stenosis with radiculopathy. PLAN: Dr. Lieberman met with the patient, reviewed imaging, and advocated for L4-5 decompression. He explained to the patient the risks, benefits, and alternatives to the procedure. The patient expressed understanding and elected to move forward with surgery as discussed. I do believe the patient is mentally competent and capable of making medical decisions for himself. We will move forward with surgery as planned. Job ID: [id number]
[2020-08-21] MEDS ORDERED: Midazolam HCl 2 mg/2 ml Vial ONE (08:14)
[2020-08-21] MEDS ORDERED: Fentanyl 100 MCG/2 ML VIAL ONE (08:14)
--- NOTE | 2020-08-21 10:11 | OP ---
DATE OF PROCEDURE: 08/21/2020 [employer]: Herrera Goodson PA-C INDICATION: Pain. DIAGNOSIS: Lateral recess stenosis with lumbar radiculopathy. PROCEDURE PERFORMED: Reoperation L4-L5 decompression and L5 foraminotomy bilaterally. ANESTHESIA: General. DESCRIPTION OF PROCEDURE: The patient was brought into the operating room and placed under general anesthesia. He was flipped from the supine to prone position on the operating room table. A linear incision was planned at the location of a prior incision. After prepping and draping and after an appropriate operative pause, the incision was created. The soft tissues were swept away from midline. A self-retaining retractor was placed. An Adson rongeur was used to remove the spinous process of the L4-L5 segment that was remaining. A high-speed cutting drill bit was used to complete the laminectomy defect at L4-L5 bilaterally and it was extended laterally in order to further decompress the lateral recesses as well as the descending and exiting L5 nerve roots bilaterally. After completing the decompression, the wound was irrigated. Hemostasis was maintained throughout. The wound was then closed in anatomic layers and a pressure dressing was applied. There were no known procedural complications. Job ID: [id number]
[2020-08-21] MEDS ORDERED: Bupivacaine PF 0.5% 30 ML VIAL ONE (10:21)
[2020-08-21] MEDS ORDERED: EPINEPHrine 1 MG/ML AMP ONE (10:21)
[2020-08-21] MEDS ORDERED: Tamsulosin HCl 0.4 MG CAP ONE (10:21)
[2020-08-21] MEDS ORDERED: PHENYLEPHRINE-NS 100 MCG/ML 10 ML SYRINGE ONE (10:59)
[2020-08-21] MEDS ORDERED: Glycopyrrolate 0.2 MG/ML 5 ML SYRINGE ONE (10:59)
[2020-08-21] MEDS ORDERED: Dexamethasone 20 MG/5 ML VIAL ONE (10:59)
[2020-08-21] MEDS ORDERED: Rocuronium Bromide 10 MG/ML (10ML VIAL) ONE (10:59)
[2020-08-21] MEDS ORDERED: PROPOFOL 200 MG/20 ML VIAL ONE (10:59)
[2020-08-21] MEDS ORDERED: ePHEDrine 50 MG/ML VIAL ONE (10:59)
[2020-08-21] MEDS ORDERED: Ketorolac Tromethamine 30 MG/ML VIAL ONE (10:59)
[2020-08-21] MEDS ORDERED: Lidocaine 1% PF 5 ML VIAL ONE (10:59)
[2020-08-21] MEDS ORDERED: Ondansetron PF 4 MG/2 ML Vial ONE (10:59)
== END 2020-08-21 12:20 | disposition home or self-care (01) ==
LOC: SDC 06:14
PROVIDERS: ATTEND Neurological Surgery
PROC: 01NB0ZZ Release Lumbar Nerve, Open Approach (ICD-10-PCS; principal; 2020-08-21)
DX: M48.061 Spinal stenosis, lumbar region without neurogenic claudication (principal); M54.16 Radiculopathy, lumbar region; E78.00 Pure hypercholesterolemia, unspecified; E11.9 Type 2 diabetes mellitus without complications; I25.10 Atherosclerotic heart disease of native coronary artery without angina pectoris; I10 Essential (primary) hypertension; G89.29 Other chronic pain; M54.5 Low back pain; Z79.82 Long term (current) use of aspirin; Z79.84 Long term (current) use of oral hypoglycemic drugs; Z79.899 Other long term (current) drug therapy; Z88.5 Allergy status to narcotic agent; Z88.8 Allergy status to other drugs, medicaments and biological substances; Z98.1 Arthrodesis status
CPT/HCPCS: 76000; J0171; J0690; J1100; J1885; J2250; J2405; J2704; J3010; J3490; S0020

== ENCOUNTER 2021-09-12 11:42 | Emergency (ER) | payer MEDICARE, BC | END 2021-09-12 12:19 | disposition left against medical advice (07) | LOC: ERS 11:42 | DX: Z53.21 Procedure and treatment not carried out due to patient leaving prior to being seen by health care provider (principal) | CPT/HCPCS: 93005 ==

== ENCOUNTER 2022-02-14 09:17 | Outpatient (CLI) | payer MEDICARE, BC | END 2022-02-14 09:18 | disposition home or self-care (01) | LOC: BICRAD 09:17 | PROVIDERS: ATTEND Internal Medicine Cardiovascular Disease | DX: I48.0 Paroxysmal atrial fibrillation (principal) | CPT/HCPCS: 71046 ==

== ENCOUNTER 2022-02-20 11:59 | Outpatient (CLI) | payer MEDICARE, BC ==
[~2022-02-20 11:59] MED LIST changes: +Iopamidol 370 76% 100 ML VIAL ONE; -Magnevist 469MG/ML 20 ML VIAL ONE
== END 2022-02-20 12:00 | disposition home or self-care (01) ==
LOC: CT 11:59
PROVIDERS: ATTEND Internal Medicine
DX: R91.1 Solitary pulmonary nodule (principal)
CPT/HCPCS: 71260; Q9967

== ENCOUNTER 2022-07-12 07:19 | Outpatient (CLI) | payer MEDICARE, BC | END 2022-07-12 07:20 | disposition home or self-care (01) | LOC: BICCT 07:19 | PROVIDERS: ATTEND Internal Medicine | DX: R10.9 Unspecified abdominal pain (principal); R11.2 Nausea with vomiting, unspecified; K57.30 Diverticulosis of large intestine without perforation or abscess without bleeding; N40.0 Benign prostatic hyperplasia without lower urinary tract symptoms; N20.0 Calculus of kidney; Q63.2 Ectopic kidney | CPT/HCPCS: 74177 ==

== ENCOUNTER 2025-08-20 12:23 | Outpatient (CLI) | payer MEDICARE, BC | END 2025-08-20 12:24 | disposition home or self-care (01) | LOC: CT 12:23 | PROVIDERS: ATTEND Neurological Surgery | DX: Z47.89 Encounter for other orthopedic aftercare (principal); Z98.1 Arthrodesis status; M47.812 Spondylosis without myelopathy or radiculopathy, cervical region | CPT/HCPCS: 72125 ==